=== PATIENT | female | born 1985 | race Caucasian/White ===

== ENCOUNTER 2016-12-02 20:23 | Outpatient (CLI) | payer MEDICAID ==
[~2016-12-02] VITALS: Ht 152.4 cm; Wt 72.9 kg
[2016-12-02 20:35] VITALS: Ht 152.4 cm; Wt 72.9 kg
[2016-12-02 20:36] VITALS: BP 119/75; PULSE 69; RESP 18
[2016-12-02] MEDS ORDERED: PRENAT PO (20:39)
[2016-12-02] MEDS ORDERED: FERR325C PO (20:39)
--- NOTE | 2016-12-02 21:52 | RADRPT ---
PROCEDURE: US OB biophysical profile. CLINICAL INDICATION: decreased movements TECHNIQUE: Multiple sonographic images of the pelvis were obtained. The images were reviewed on a PACS workstation. COMPARISON: No prior studies are available for comparison. FINDINGS: There is a single viable intrauterine gestation. Cardiac activity is present with 130 beats per min loyda. There is a vertex presentation. The placenta is anterior. There is no evidence of placental abruption. There is a normal amount of amniotic fluid with an VIVIANA = 16.5 cm. Biophysical profile: movement 2/2 tone 2/2. breathing 2/2 VIVIANA 2/2 Total 11/18 RPTAT: AA . IMPRESSION: Normal biophysical profile. . .Marcus Vallejo MD, MD Date Time Electronically viewed and signed by .Marcus Vallejo MD, MD on 12/02/2016 21:52 .S/
[2016-12-02 23:38] LABS: BASOPHILS % 0.3 % (0.0-2.0); EOSINOPHILS % 0.5 % (0.0-7.0); HEMATOCRIT 34.2 % (37.0-47.0); HEMOGLOBIN 11.8 g/dl (12.0-16.0); LYMPHOCYTES # 2.3 10^3/ul (0.8-2.9); LYMPHOCYTES % 36.1 % (15.0-51.0); MEAN CORPUSCULAR HEMOGLOBIN 31.9 pg (29.0-33.0); MEAN CORPUSCULAR HGB CONC 34.5 g/dl (32.0-37.0); MEAN CORPUSCULAR VOLUME 92.4 fl (82.0-101.0); MEAN PLATELET VOLUME 11.9 fl (7.4-10.4); MONOCYTE # 0.4 10^3/ul (0.3-0.9); MONOCYTES % 5.9 % (0.0-11.0); PLATELET COUNT 200 10^3/UL (140-415); RED CELL DISTRIBUTION WIDTH 13.2 % (11.5-14.5); WHITE BLOOD COUNT 6.5 10^3/ul (4.8-10.8)
[2016-12-02 23:48] LABS: UR BILIRUBIN (Dip) NEGATIVE (NEGATIVE); UR BLOOD (Dip) NEGATIVE (NEGATIVE); UR CLARITY CLEAR (CLEAR); UR COLOR YELLOW (YELLOW); UR GLUCOSE (Dip) NEGATIVE (NEGATIVE); UR KETONES (Dip) NEGATIVE (NEGATIVE); UR LEUKOCYTE ESTERASE (Dip) NEGATIVE Leu/ul (NEGATIVE); UR NITRITE (Dip) NEGATIVE (NEGATIVE); UR SPECIFIC GRAVITY (Dip) 1.014 (1.003-1.030); UR TOTAL PROTEIN (Dip) NEGATIVE (NEGATIVE); UR UROBILINOGEN (Dip) NEGATIVE (NEGATIVE)
[2016-12-02 23:49] LABS: ADD UMIC NO; UR ASCORBIC ACID NEGATIVE (NEGATIVE)
[2016-12-02 23:56] LABS: ALBUMIN 3.2 g/dl (3.3-4.9); ALBUMIN/GLOBULIN RATIO 0.91; BILIRUBIN,INDIRECT 0.3 mg/dl (0-1.1); BILIRUBIN,TOTAL 0.3 mg/dl (0.2-1.3); CALCIUM 8.7 mg/dl (8.4-10.2); CREATININE 0.76 mg/dl (0.44-1.00); TOTAL PROTEIN 6.7 g/dl (6.1-8.1)
--- NOTE | 2016-12-03 02:54 | TRIAGE ---
OB Triage Datetime Report Generated by CPN: 12/03/2016 02:54 Datetime: 12/03/2016 01:30 Stage of : OB Triage Labor Evaluation Frequency: occasional Monitor Mode: External Duration (sec)2399: 60-80 Quality: Mild Resting Tone [place]: Relaxed Heart Rate FHR Baseline Rate: 130 Monitor Mode: External US Variability: Moderate 6-25 bpm Accelerations: 15X15 Decelerations: None Category: Category I Datetime: 12/03/2016 00:30 Stage of : OB Triage Labor Evaluation Frequency: occasional Monitor Mode: External Duration (sec)2399: 40-60 Quality: Mild Resting Tone [place]: Relaxed Heart Rate FHR Baseline Rate: 125 Monitor Mode: External US Variability: Moderate 6-25 bpm Accelerations: 15X15 Decelerations: None Category: Category I Datetime: 12/02/2016 23:30 Labor Evaluation Frequency: irregular Monitor Mode: External Duration (sec)2399: 40-80 Quality: Mild Resting Tone [place]: Relaxed Heart Rate FHR Baseline Rate: 120 Monitor Mode: External US FHR Baseline Changes: No Baseline Change Variability: Moderate 6-25 bpm Accelerations: 15X15 Decelerations: None Category: Category I Pain Assessment Pain Scale: 1 Pain Presence: Intermittent Pain Type: Contraction Pain Location: Abdomen Datetime: 12/02/2016 23:21 Stage of : OB Triage Datetime: 12/02/2016 23:18 Monitor Mode: External US Datetime: 12/02/2016 22:40 Stage of : OB Triage Datetime: 12/02/2016 22:30 Stage of : OB Triage Monitor Mode: External Quality: Mild Resting Tone [place]: Relaxed Heart Rate FHR Baseline Rate: 110 Monitor Mode: External US FHR Baseline Changes: No Baseline Change Variability: Moderate 6-25 bpm Accelerations: 15X15 Decelerations: None Category: Category I Datetime: 12/02/2016 22:13 Stage of : OB Triage Datetime: 12/02/2016 21:50 Stage of : OB Triage Datetime: 12/02/2016 21:37 Vaginal Exam Dilatation (cms): 0.5 Effacement (%): 50 Station: -3 Exam By: M GRIFFITH Vaginal Bleeding: None Cervix, Consistency: Firm Cervix, Position: Posterior Presentation 'A': Cephalic Datetime: 12/02/2016 21:32 Stage of : OB Triage Datetime: 12/02/2016 21:25 Stage of : OB Triage Labor Evaluation Frequency: 3-11 Monitor Mode: External Duration (sec)2399: 50-80 Quality: Mild Resting Tone [place]: Relaxed Heart Rate FHR Baseline Rate: 120 Monitor Mode: External US Variability: Moderate 6-25 bpm Accelerations: 15X15 Decelerations: None Category: Category I Datetime: 12/02/2016 20:40 Assessment Type: Triage Maternal Assessment Level of Consciousness: Fully Conscious DTR's/Clonus: DTRs 2+; No Clonus Headache: Denies Blurred Vision: No Respiratory Effort: Unlabored Breath Sounds, Left: Clear and Equal Breath Sounds, Right: Clear and Equal Nausea/Vomiting: Denies RUQ Epigastric Pain: Denies Lower Extremities Edema: None Degree: None Upper Extremities Edema: None Degree: None Facial Edema: None Fall Risk Assessment History of Falling: (0) No Secondary Diagnosis: (15) Yes (Annotations: gdm diet controlled) Ambulatory Aid: (0) Bedrest/Nurse Assist IV Therapy: (0) No Gait: (0) Normal/Bedrest/Immobile Mental Status: (0) Oriented to Own Ability Fall Score: 15 Fall Risk Score Definition: No Risk: No action required Datetime: 12/02/2016 20:31 Stage of : OB Triage Monitor Mode: External Contraction Comments: placed Monitor Mode: External US Comments: placed Datetime: 12/02/2016 20:26 Time of Arrival: 12/02/2016 20:15 EGA: 39.1 Arrived By: Ambulatory Arrived From: Home Chief Complaint: DFM, occ ucs since Sat Movement: Decreased Contractions: Occasional Rupture of Membranes: Denies Vaginal Bleeding: None Vaginal Discharge: Denies Recent Sexual Intercouse: Denies Abdominal Trauma: Not Applicable Patient Complaints: Contractions; Other Time Provider Notified: 12/02/2016 21:09 Provider Notified: TOM Initial Plan: OLU, kelvin, ALEXANDER
--- NOTE | 2016-12-03 04:15 | PN ---
Triage Information Date/Time 12/03/16 0410 Reason for visit: DFM Weeks of Gestation 39w1d /Para Diabetes: none, gestational Diabetes management: diet controlled Hypertention: none Objective Vital Signs Date Time Temp Pulse Resp B/P Pulse Ox O2 Delivery O2 Flow Rate FiO2 12/02/16 20:36 98.3 69 18 119/75 97 Room Air Heart Rate: 120's Contractions: 6-10 Minutes Apart Exam VE ftp/50 /-4 Results/Medications Result Diagram: 12/02/164 12/02/16 2324 Results 24 hrs Laboratory Tests Test 12/02/16 21:03 12/02/16 23:24 Urine Color YELLOW Urine Clarity CLEAR Urine pH 7.0 Urine Specific [place] 1.014 Urine Ketones NEGATIVE Urine Nitrite NEGATIVE Urine Bilirubin NEGATIVE Urine Urobilinogen NEGATIVE Urine Leukocyte Esterase NEGATIVE Urine Hemoglobin NEGATIVE Urine Glucose NEGATIVE Urine Total Protein NEGATIVE White Blood Count 6.5 Red Blood Count 3.70 L Hemoglobin 11.8 L Hematocrit 34.2 L Mean Corpuscular Volume 92.4 Mean Corpuscular Hemoglobin 31.9 Mean Corpuscular Hemoglobin Concent 34.5 Red Cell Distribution Width 13.2 Platelet Count 200 Mean Platelet Volume 11.9 H Neutrophils % 57.0 Lymphocytes % 36.1 Monocytes % 5.9 Eosinophils % 0.5 Basophils % 0.3 Nucleated Red Blood Cells % 0.0 Neutrophils # (Manual) 4 Lymphocytes # 2.3 Monocytes # 0.4 Eosinophils # 0.0 Basophils # 0.0 Nucleated Red Blood Cells # 0.0 Sodium Level 137 Potassium Level 4.0 Chloride Level 103 Carbon Dioxide Level 21 Anion Gap 17 H Blood Urea Nitrogen 15 Creatinine 0.76 Glucose Level 91 Uric Acid 5.4 Calcium Level 8.7 Total Bilirubin 0.3 Direct Bilirubin 0.00 Indirect Bilirubin 0.3 Aspartate Amino Transf (AST/SGOT) 20 Alanine Aminotransferase (ALT/SGPT) 40 Alkaline Phosphatase 226 H Total Protein 6.7 Albumin 3.2 L Globulin 3.50 H Albumin/Globulin Ratio 0.91 Imaging Results BPP 11/18 VIVIANA 16.5 Disposition: Discharge Assessment/Plan IUP 39w1d latent phase RTH prn with labor instructions PHILOMENA CHANDRA MD Dec 03, 2016 04:14
== END 2016-12-03 01:40 | disposition home or self-care (01) ==
LOC: L-D 20:23 → OBT 20:23
PROVIDERS: ATTEND Obstetrics & Gynecology
DX: O36.8130 Decreased fetal movements, third trimester, not applicable or unspecified (principal); Z3A.39 39 weeks gestation of pregnancy; O24.410 Gestational diabetes mellitus in pregnancy, diet controlled
CPT/HCPCS: 76818; 80053; 81003; 84560; 85025; Z7500; G0463

== ENCOUNTER 2016-12-08 10:00 | Inpatient (IN) | payer MEDICAID ==
[~2016-12-08] VITALS: Ht 152.4 cm; Wt 71.6 kg
[~2016-12-08 10:00] MED LIST: FERR325C PO; PRENAT PO
[2016-12-08 12:11] VITALS: Ht 152.4 cm; Wt 71.6 kg
[2016-12-08] MEDS: LACTATED RINGER'S 1,000 ML IV SCH ×2 (12:51→21:05)
[2016-12-08] MEDS ORDERED: METHYLERGONOVINE 0.2 MG INJ IM PRN (13:00)
[2016-12-08] MEDS ORDERED: BUTORPHANOL 2 MG INJ IV PRN (13:00)
[2016-12-08] MEDS ORDERED: IBUPROFEN 600 MG TAB PO PRN (13:00)
[2016-12-08] MEDS ORDERED: MISOPROSTOL 200 MCG TAB PR PRN (13:00)
[2016-12-08] MEDS ORDERED: LACTATED RINGER'S 1,000 ML IV PRN (13:00)
[2016-12-08] MEDS ORDERED: DINOPROSTONE 10 MG VAG SUPP VAG ONE (13:00)
[2016-12-08] MEDS ORDERED: LIDOCAINE 1% (MPF) 30 ML INJ INJ PRN (13:00)
[2016-12-08] MEDS ORDERED: OXYTOCIN 30 UNITS/LR 500 ML IV PRN (13:00)
[2016-12-08] MEDS ORDERED: CARBOPROST 250 MCG INJ IM PRN (13:00)
[2016-12-08] MEDS ORDERED: OXYTOCIN 30 UNITS/LR 500 ML IV SCH (13:00)
[2016-12-08] MEDS ORDERED: AMPICILLIN 2 GM/NS (PMX) 100 ML IV ONE (13:00)
[2016-12-08 13:08] LABS: BASOPHILS % 0.4 % (0.0-2.0); EOSINOPHILS % 0.6 % (0.0-7.0); HEMATOCRIT 32.3 % (37.0-47.0); HEMOGLOBIN 11.2 g/dl (12.0-16.0); LYMPHOCYTES # 1.7 10^3/ul (0.8-2.9); MEAN CORPUSCULAR HEMOGLOBIN 31.6 pg (29.0-33.0); MEAN CORPUSCULAR HGB CONC 34.7 g/dl (32.0-37.0); MEAN CORPUSCULAR VOLUME 91.2 fl (82.0-101.0); MEAN PLATELET VOLUME 12.8 fl (7.4-10.4); MONOCYTE # 0.4 10^3/ul (0.3-0.9); NEUTROPHILS % 59.8 % (39.0-77.0); PLATELET COUNT 177 10^3/UL (140-415); RED BLOOD COUNT 3.54 10^6/ul (4.20-5.40); RED CELL DISTRIBUTION WIDTH 13.5 % (11.5-14.5); WHITE BLOOD COUNT 5.4 10^3/ul (4.8-10.8)
[2016-12-08 13:20] LABS: INR 0.82; PROTIME 11.3 Sec (12.2-14.2); PT RATIO 0.9
[2016-12-08 13:21] LABS: PARTIAL THROMBOPLASTIN TIME 25.8 Sec (25.0-35.0)
[2016-12-08 15:13] VITALS: BP 128/86; PULSE 128; RESP 18
[2016-12-08] MEDS: AMPICILLIN 1 GM/NS (PMX) 50 ML IV SCH ×2 (17:02→21:05)
[2016-12-08 17:12] LABS: ALBUMIN 3.3 g/dl (3.3-4.9); ALBUMIN/GLOBULIN RATIO 0.94; BILIRUBIN,INDIRECT 0.2 mg/dl (0-1.1); BILIRUBIN,TOTAL 0.2 mg/dl (0.2-1.3); CALCIUM 8.6 mg/dl (8.4-10.2); CREATININE 0.55 mg/dl (0.44-1.00); POTASSIUM 4.2 mmol/L (3.5-5.1); TOTAL PROTEIN 6.8 g/dl (6.1-8.1); URIC ACID 5.7 mg/dl (3.1-7.9)
[2016-12-08 18:02] LABS: ADD UMIC NO; UR ASCORBIC ACID NEGATIVE (NEGATIVE); UR BILIRUBIN (Dip) NEGATIVE (NEGATIVE); UR BLOOD (Dip) NEGATIVE (NEGATIVE); UR CLARITY CLEAR (CLEAR); UR COLOR STRAW (YELLOW); UR GLUCOSE (Dip) NEGATIVE (NEGATIVE); UR KETONES (Dip) NEGATIVE (NEGATIVE); UR LEUKOCYTE ESTERASE (Dip) NEGATIVE Leu/ul (NEGATIVE); UR NITRITE (Dip) NEGATIVE (NEGATIVE); UR TOTAL PROTEIN (Dip) NEGATIVE (NEGATIVE); UR UROBILINOGEN (Dip) NEGATIVE (NEGATIVE)
--- NOTE | 2016-12-08 20:56 | HP ---
Date/Time of Note Date/Time of Note DATE: 12/08/16 TIME: 20:54 OB - History Hx of Present Free Text/Dictation Admitted for elective induction of labor at term Chief Complaint: None Last Menstrual Period: Mar 03, 2016 Estimated Due Date: Dec 08, 2016 : 3 Para: 1 Spontaneous : 1 Care: Good Care Ultrasounds: Normal mid trimester US Obstetrical Complications: Gestational Diabetes Medical Complications: None Past Family/Social History * Past Medical, Surgical, Family and Obstetric Histories reviewed from chart. Blood Type: O+ Rubella: immune RPR/VDRL: Negative GBS Status: Positive HBsAG: Negative OB Admission Exam Vital Signs Vital Signs Vital Signs Date Time Temp Pulse Resp B/P Pulse Ox O2 Delivery O2 Flow Rate FiO2 12/08/16 15:13 98.1 128 18 128/86 96 Room Air Physical Exam HEENT: WNL Heart: Rhythm Normal Lungs: Clear, Equal Abdomen: WNL Extremities: Normal Reflexes: Normal Cervical Dilatation: 1cm Effacement: 0% Station: -3 Membranes: Intact Heart Rate: 130's Decelerations: No Decelerations Varibility: Marked Contractions on Admission: None Last 72 hourBlood Glucose Bedside Glucose - 72 Hours Test 12/08/16 12:42 12/08/16 20:10 Bedside Glucose 95mg/dL (70-220) 81mg/dL (70-220) Last 72 hours Lab Results CBC & BMP 12/08/16 12:45 12/08/16 14:45 Liver Function Test 12/08/16 14:45 Alanine Aminotransferase (ALT/SGPT) 34 Albumin 3.3 Alkaline Phosphatase 231 H Aspartate Amino Transf (AST/SGOT) 24 Direct Bilirubin 0.00 Total Protein 6.8 OB Assessment/Plan Reason for admission: induction of labor Other Assessment: Term gestation Additional diabetes Induction Method: per Misoprostol Protocol DARREL DOMÍNGUEZ MD Dec 08, 2016 20:56
[2016-12-08] MEDS ORDERED: ACCU-CHEK XX SCH (23:00)
[2016-12-09] MEDS: AMPICILLIN 1 GM/NS (PMX) 50 ML IV SCH ×4 (01:10→13:21)
[2016-12-09] MEDS ORDERED: MAGNESIUM SULFATE 4 GM/100 ML 100 ML IV SCH (05:30)
[2016-12-09] MEDS ORDERED: CA GLUCONATE (GM) 10% 10ML INJ IV PRN (05:30)
[2016-12-09] MEDS ORDERED: FENTAnyl 2MCG/ML-ROPIV 0.2% 100 ML ONE (05:45)
[2016-12-09] MEDS ORDERED: MAGNESIUM SULFATE 20 GM/500 ML 500 ML IV SCH (06:30)
[2016-12-09] MEDS ORDERED: NALOXONE (0.4 MG/ML) INJ IV PRN (06:30)
[2016-12-09] MEDS ORDERED: FENTAnyl 2MCG/ML-ROPIV 0.2% 100 ML BAG EPI SCH (06:30)
[2016-12-09] MEDS: LACTATED RINGER'S 1,000 ML IV SCH ×2 (06:36→14:07)
[2016-12-09] MEDS ORDERED: MINERAL OIL LIGHT 10 ML VIAL TOP ONE (09:30)
[2016-12-09] MEDS: OXYTOCIN 30 UNITS/LR 500 ML IV SCH ×2 (14:42→16:51)
--- NOTE | 2016-12-09 14:47 | LDN ---
Date/Time of Note Date/Time of Note DATE: 12/09/16 TIME: 14:45 Delivery Summary Normal spontaneous vaginal delivery of a viable over intact perineum Weeks of Gestation 40 Assisted Vaginal Delivery: Vacuum Placenta Delivered: Spontaneously, Intact & Complete Meconium: none Episiotomy: No Perineal laceration: 0 Anesthesia type: Epidural Estimated blood loss: 200 Sponge & Needle done & correct: Yes All needle counts correct: Yes Any foreign bodies felt in the: No Problems: Infant Delivery Information Sex Infant Sex: female Apgars 1 Minute: 9 5 Minute: 9 Suctioning Nose & mouth suctioned at divya: Yes Delee suction performed: No Umbilical Cord Umbilical cord with: 3 Vessels Cord presentations: nuchal cord Nuchal cord present X: 2 Cord Blood was obtained: Yes Mother & Baby Disposition Disposition Mom & Baby to Maternity; Good: Yes (Mother and baby were recovered in good condition) Mom transferred to: Other (30 T) Baby to NICU: No DARREL DOMÍNGUEZ MD Dec 09, 2016 14:47
[2016-12-09 16:45] VITALS: BP 150/79; PULSE 62; RESP 18
[2016-12-09] MEDS: LACTATED RINGER'S 1,000 ML IV* SCH (17:29)
[2016-12-09] MEDS ORDERED: BENZOCAINE 20% 56 ML SPRAY TOP PRN (17:30)
[2016-12-09] MEDS ORDERED: LANOLIN 7 GM TUBE TOP PRN (17:30)
[2016-12-09] MEDS ORDERED: METHYLERGONOVINE 0.2 MG INJ IM PRN (17:30)
[2016-12-09] MEDS ORDERED: CARBOPROST 250 MCG INJ IM PRN (17:30)
[2016-12-09] MEDS ORDERED: MISOPROSTOL 200 MCG TAB PR PRN (17:30)
[2016-12-09] MEDS ORDERED: DIBUCAINE 1% 30 GM OINT PR PRN (17:30)
[2016-12-09] MEDS ORDERED: ZOLPIDEM 5 MG TAB PO PRN (17:30)
[2016-12-09] MEDS ORDERED: HYDROCODONE/APAP (5/325) TAB PO PRN ×2 (17:30)
[2016-12-09] MEDS ORDERED: WITCH HAZEL/GLYCERIN PAD PR PRN (17:30)
[2016-12-09] MEDS ORDERED: OXYTOCIN 30 UNITS/LR 500 ML IV PRN (17:30)
[2016-12-09] MEDS: IBUPROFEN 600 MG TAB PO SCH (17:52)
[2016-12-09] MEDS: CEPHALEXIN 500 MG CAP PO SCH (17:52)
[2016-12-09 19:20] VITALS: PULSE 62; RESP 18
[2016-12-09] MEDS: ACCU-CHEK XX SCH ×2 (20:00→20:05)
[2016-12-09] MEDS: SENNA/DOCUSATE NA (8.6MG/50MG) TAB PO SCH (21:04)
[2016-12-09] MEDS: MAGNESIUM HYDROXIDE 30ML CUP PO SCH (21:04)
[2016-12-09] MEDS: metFORMIN (XR) 500 MG TAB PO SCH (21:57)
[2016-12-10] VITALS: BP 115/65; PULSE 69; RESP 18
[2016-12-10] MEDS: CEPHALEXIN 500 MG CAP PO SCH ×5 (00:23→23:50)
[2016-12-10] MEDS: IBUPROFEN 600 MG TAB PO SCH ×5 (00:23→23:50)
[2016-12-10] MEDS: LACTATED RINGER'S 1,000 ML IV* SCH ×2 (01:29→09:29)
[2016-12-10 03:55] VITALS: BP 130/80; PULSE 58; RESP 18
[2016-12-10] MEDS: ACCU-CHEK XX SCH ×4 (07:30→20:05)
[2016-12-10 08:00] VITALS: BP 111/76; PULSE 62; RESP 18
[2016-12-10] MEDS: metFORMIN (XR) 500 MG TAB PO SCH ×2 (08:40→21:00)
[2016-12-10] MEDS: SENNA/DOCUSATE NA (8.6MG/50MG) TAB PO SCH ×2 (09:19→21:17)
[2016-12-10] MEDS: MAGNESIUM HYDROXIDE 30ML CUP PO SCH ×2 (09:19→21:17)
[2016-12-10 12:14] LABS: BASOPHILS % 0.2 % (0.0-2.0); EOSINOPHILS # 0.1 10^3/ul (0.0-0.5); EOSINOPHILS % 0.5 % (0.0-7.0); HEMATOCRIT 30.9 % (37.0-47.0); HEMOGLOBIN 10.5 g/dl (12.0-16.0); LYMPHOCYTES # 2.1 10^3/ul (0.8-2.9); MEAN CORPUSCULAR HEMOGLOBIN 31.6 pg (29.0-33.0); MEAN CORPUSCULAR VOLUME 93.1 fl (82.0-101.0); MEAN PLATELET VOLUME 12.7 fl (7.4-10.4); MONOCYTE # 0.4 10^3/ul (0.3-0.9); MONOCYTES % 3.8 % (0.0-11.0); NEUTROPHILS % 74.1 % (39.0-77.0); PLATELET COUNT 159 10^3/UL (140-415); RED BLOOD COUNT 3.32 10^6/ul (4.20-5.40); RED CELL DISTRIBUTION WIDTH 13.9 % (11.5-14.5)
--- NOTE | 2016-12-10 14:19 | DS ---
Date/Time of Note Date/Time of Note Home today or next day DATE: 12/10/16 TIME: 14:18 Obstetrical Discharge Record Final Diagnosis Final Diagnosis: Term delivered Other Final Diagnosis Status post vaginal delivery Vaginal Delivery Obstetrical Delivery: Spontaneous Complications Gestational Diabetes Augmentation: Yes Induction: Yes Condition on Discharge Physical Assessment Last Vitals: See nurse's note Voiding: Yes Bowel Movement: Yes Breast: Soft, non-tender, Filling Fundus: Firm Abdomen and Incision: Soft bowel sounds present Episiotomy: Not applicable Calf Tenderness: No Patient Condition: Good DARREL DOMÍNGUEZ MD Dec 10, 2016 14:19
--- NOTE | 2016-12-10 14:20 | PD.PPDC ---
[employer]ION[employer]OD[employer] ADVISOR Discharge Instruction Provider Information Physician Information 31-year-old female had vaginal delivery Diagnosis Final Diagnosis: Status post vaginal delivery Condition Patient Condition: Good Diet Diet: Special Diet Special Diet: 1800-calorie ADA Activity/Restrictions Activity: Normal Activity May Shower Restrictions: Nothing in the Vagina Return to Work or School: Jan 26, 2017 Follow-up Follow-up with Physician: 4, Week/Weeks (Clinic) Return to clinic for OB Instructions: Breast Tenderness Depression Comment: Pelvic rest 6 weeks DARREL DOMÍNGUEZ MD Dec 10, 2016 14:20
[2016-12-10] MEDS ORDERED: IBUP-1542 PO (14:21)
[2016-12-10] MEDS ORDERED: METF500T3 PO (14:21)
[2016-12-10 16:00] VITALS: BP 110/76; PULSE 70; RESP 18
[2016-12-10 19:45] VITALS: BP 116/74; PULSE 64; RESP 18
[2016-12-11 04:20] VITALS: BP 122/78; PULSE 62; RESP 18
[2016-12-11] MEDS: CEPHALEXIN 500 MG CAP PO SCH ×2 (06:05→13:04)
[2016-12-11] MEDS: IBUPROFEN 600 MG TAB PO SCH ×2 (06:05→12:00)
[2016-12-11 08:45] VITALS: BP 134/84; PULSE 56; RESP 20
[2016-12-11] MEDS ORDERED: DIPHTH/TET/ACEL PERTUSS (ADULT) 0.5 ML VIAL IM* ONE (09:00)
[2016-12-11] MEDS ORDERED: VARICELLA VACCINE LIVE/PF 1,350 UNIT/0.5 ML ML SC* ONE (09:00)
[2016-12-11] MEDS: MAGNESIUM HYDROXIDE 30ML CUP PO SCH (09:00)
[2016-12-11] MEDS ORDERED: MEASLES,MUMPS,RUBELLA VACCINE INJ SC* ONE (09:00)
[2016-12-11] MEDS: SENNA/DOCUSATE NA (8.6MG/50MG) TAB PO SCH (09:00)
[2016-12-11] MEDS: metFORMIN (XR) 500 MG TAB PO SCH (09:08)
== END 2016-12-11 17:05 | disposition home or self-care (01) | DRG 775 ==
LOC: L-D 11:08 → PP1 12-09 16:42
PROVIDERS: ADMIT Obstetrics & Gynecology; ATTEND Obstetrics & Gynecology
PROC: 10D07Z6 Extraction of Products of Conception, Vacuum, Via Natural or Artificial Opening (ICD-10-PCS; principal; 2016-12-09)
PROC: 3E033VJ Introduction of Other Hormone into Peripheral Vein, Percutaneous Approach (ICD-10-PCS; 2016-12-09)
DX: O69.81X0 Labor and delivery complicated by cord around neck, without compression, not applicable or unspecified (principal); O24.429 Gestational diabetes mellitus in childbirth, unspecified control; O48.0 Post-term pregnancy; Z3A.40 40 weeks gestation of pregnancy; Z37.0 Single live birth
CPT/HCPCS: 62319; 80053; 81003; 82962; 84560; 85025; 85610; 85730; 86592; 86900; 86901; 87340; 90715; 90716; 99464; J0290; J2590; J3010; J7120

== ENCOUNTER 2018-07-02 14:08 | Outpatient (CLI) | payer MEDICAID ==
[~2018-07-02] VITALS: Ht 152.4 cm; Wt 46.8 kg
[~2018-07-02 14:08] MED LIST changes: +IBUP-1542 PO; +METF500T3 PO
[2018-07-02 14:38] VITALS: BP 101/64; Ht 152.4 cm; Wt 46.8 kg
--- NOTE | 2018-07-02 17:07 | PN ---
Triage Information Date/Time 07/02/2018 Reason for visit: Patient was sent in from clinic for generalized body itching in antepartum testing Weeks of Gestation 33 weeks /Para 4 para 3 Diabetes: none Hypertention: none Objective Vital Signs Date Temp Pulse Resp B/P (MAP) Pulse Ox O2 O2 Flow FiO2 Time Delivery Rate 07/02/18 98.6 101/64 Room Air 14:38 (76) Heart Rate: 140's Heart Rate Comments Reactive Contractions: None Results/Medications Result Diagram: 07/02/18 1458 07/02/18 1458 Results 24 hrs Laboratory Tests Test 07/02/18 14:58 White Blood Count 5.5 # Red Blood Count 3.52 L Hemoglobin 11.2 L Hematocrit 32.6 L Mean Corpuscular Volume 92.6 Mean Corpuscular Hemoglobin 31.8 Mean Corpuscular Hemoglobin Concent 34.4 Red Cell Distribution Width 12.3 Platelet Count 238 # Mean Platelet Volume 11.1 H Immature Granulocytes % 0.400 Neutrophils % 67.9 Lymphocytes % 26.0 Monocytes % 4.6 Eosinophils % 0.9 Basophils % 0.2 Nucleated Red Blood Cells % 0.0 Immature Granulocytes # 0.020 Neutrophils # 3.7 Lymphocytes # 1.4 Monocytes # 0.3 Eosinophils # 0.1 Basophils # 0.0 Nucleated Red Blood Cells # 0.0 Sodium Level 140 Potassium Level 3.9 Chloride Level 108 Carbon Dioxide Level 21 Anion Gap 11 Blood Urea Nitrogen 8 Creatinine 0.42 L Est Glomerular Filtrat Rate mL/min > 60 Glucose Level 151 Calcium Level 8.9 Total Bilirubin 0.4 Direct Bilirubin 0.00 Indirect Bilirubin 0.4 Aspartate Amino Transf (AST/SGOT) 29 Alanine Aminotransferase (ALT/SGPT) 28 Alkaline Phosphatase 180 H Total Protein 6.9 Albumin 3.4 Globulin 3.50 H Albumin/Globulin Ratio 0.97 Imaging Results Normal biophysical profile. Borderline polyhydramnios. Disposition: Discharge Assessment/Plan Possible cholestasis of Bile acids are pending Liver enzymes are normal We will start patient on your ursodiol 300 p.o. 3 times a day Continue antepartum testing in 3 days DARREL DOMÍNGUEZ MD Jul 02, 2018 17:06
--- NOTE | 2018-07-02 18:44 | TRIAGE ---
OB Triage Datetime Report Generated by CPN: 07/02/2018 18:43 Datetime: 07/02/2018 17:02 Stage of : OB Triage Datetime: 07/02/2018 16:36 Labor Evaluation Frequency: 0 Monitor Mode: External Pattern: Normal: <= 5 Contractions in 10 Minutes Resting Tone [place]: Relaxed Heart Rate FHR Baseline Rate: 145 Monitor Mode: External US Variability: Moderate 6-25 bpm Accelerations: 10X10 Decelerations: None Category: Category I Pain Assessment Pain Scale: 0 Pain Presence: None/Denies Pain Type: N/A Pain Goal: 3 Pain Relief Measures: Comfort Measures Datetime: 07/02/2018 15:19 Labor Evaluation Frequency: 0 Monitor Mode: External Pattern: Normal: <= 5 Contractions in 10 Minutes Resting Tone [place]: Relaxed Heart Rate FHR Baseline Rate: 145 Monitor Mode: External US Variability: Moderate 6-25 bpm Accelerations: 10X10 Decelerations: None Category: Category I Pain Assessment Pain Scale: 0 Pain Presence: None/Denies Pain Type: N/A Pain Goal: 3 Pain Relief Measures: Comfort Measures Datetime: 07/02/2018 14:35 Stage of : OB Triage Assessment Type: Triage Maternal Assessment Level of Consciousness: Fully Conscious DTR's/Clonus: DTRs 2+; No Clonus Headache: Denies Blurred Vision: No Respiratory Effort: Unlabored; Regular Rhythm; Equal Expansion Breath Sounds, Left: Clear and Equal Breath Sounds, Right: Clear and Equal Nausea/Vomiting: Denies RUQ Epigastric Pain: Denies Lower Extremities Edema: None Degree: None Upper Extremities Edema: None Facial Edema: None Temperature Route: Oral Fall Risk Assessment History of Falling: (0) No Secondary Diagnosis: (0) No Ambulatory Aid: (0) Bedrest/Nurse Assist IV Therapy: (0) No Gait: (0) Normal/Bedrest/Immobile Mental Status: (0) Oriented to Own Ability Fall Score: 0 Fall Risk Score Definition: No Risk: No action required Monitor Mode: External (Annotations: INITIAL PLACEMENT ) Monitor Mode: External US (Annotations: INITIAL PLACEMENT ) Pain Assessment Pain Scale: 0 Pain Presence: None/Denies Pain Type: N/A Datetime: 07/02/2018 14:34 Time of Arrival: 07/02/2018 14:00 EGA: 33.0 Arrived By: Ambulatory Arrived From: Dr. Monahan Chief Complaint: SENT FROM CLINIC FOR ITCHING ALL OVER BODY Movement: Present Contractions: Denies/Absent Rupture of Membranes: Denies Vaginal Bleeding: None Vaginal Discharge: Denies Recent Sexual Intercouse: Denies Abdominal Trauma: Not Applicable Patient Complaints: Other Time Provider Notified: 07/02/2018 14:48 Provider Notified: DR. SANTOS Initial Plan: JOSE F GIPSON MD
== END 2018-07-02 17:10 | disposition home or self-care (01) ==
LOC: OBT 14:08 → L-D 14:09 → OBT 17:10
PROVIDERS: ATTEND Obstetrics & Gynecology
DX: O26.893 Other specified pregnancy related conditions, third trimester (principal); Z3A.33 33 weeks gestation of pregnancy; L29.9 Pruritus, unspecified
CPT/HCPCS: 76818; 80053; 83789; 85025; Z7500; G0463

== ENCOUNTER 2018-07-08 16:50 | Emergency (ER) | payer MEDICAID ==
[~2018-07-08] VITALS: Ht 167.6 cm; Wt 68.7 kg
[~2018-07-08 16:50] MED LIST changes: -IBUP-1542 PO; -METF500T3 PO
[2018-07-08 17:08] VITALS: BP 118/67; PULSE 81; RESP 20; Ht 167.6 cm; Wt 68.7 kg
[2018-07-08] MEDS ORDERED: FLUT16SP17 NASAL (20:22)
[2018-07-08] MEDS ORDERED: CETI5TAB20 PO (20:22)
--- NOTE | 2018-07-08 23:01 | ERD ---
ER Documentation Chief Complaint Chief Complaint Complains of a cough clods and flu symptoms x 3 days HPI History of Present Illness: Patient coming in today with complaint of cold symptoms. Patient reports having a cold for approximately 2 weeks. In the past 3 days, patient reports increased nasal congestion and cough. She is approximately 34 weeks ; no abdominal pain, no vaginal bleeding, patient reports feeling kicks. At home pharmacological/nonpharmacological treatment for symptoms: None Denies social concerns; Denies recent foreign travel ROS All systems reviewed and are negative except as per history of present illness. Medications Home Meds Active Scripts Cetirizine Hcl* (Cetirizine Hcl*) 5 Mg Tablet, 5 MG PO DAILY for allergies/cough, #30 TAB Prov:RONALDO OAKES NP 07/08/18 Fluticasone Propionate* (Fluticasone Propionate* Nasal) 50 Mcg/[place] - 16 Gm [place].susp, 1 SPRAY NASAL BID for nasal congestion, #1 BOTTLE TO EACH NOSTRIL Prov:RONALDO OAKES NP 07/08/18 Reported Medications Ferrous Sulfate (Iron) 325 Mg Capsule.er, 325 MG PO DAILY, CAP 12/02/16 Multivit/Min/Fol Ac/Iron/Pren* ( S*) 1 Tab Tab, 1 TAB PO DAILY, TAB 12/02/16 Discontinued Scripts Metformin* (Glucophage* XR) 500 Mg Tab.sr.24h, 500 MG PO BID, #120 6 Refills Prov:DARREL DOMÍNGUEZ MD 12/10/16 Ibuprofen* (Ibuprofen*) 600 Mg Tablet, 600 MG PO Q6, #30 TAB 0 Refills Prov:DARREL DOMÍNGUEZ MD 12/10/16 Allergies Allergies: Coded Allergies: No Known Allergies (Verified Allergy, Unknown, 07/02/18) PMhx/Soc Medical and Surgical Hx: pt denies Medical Hx, pt denies Surgical Hx Hx Psychiatric Problems: Yes (ANXIETY) Hx Alcohol Use: No Hx Substance Use: No Hx Tobacco Use: No Smoking Status: Never smoker FmHx Family History: No diabetes Physical Exam Vitals Vital Signs Date Temp Pulse Resp B/P (MAP) Pulse Ox O2 O2 Flow FiO2 Time Delivery Rate 07/08/18 97.9 81 20 118/67 98 17:08 (84) Physical Exam Const: No acute distress, afebrile Head: Atraumatic Eyes: Normal Conjunctiva ENT: Normal External Ears, Mouth; nasal turbinates swollen, nasal mucosa erythematous. Neck: Full range of motion. No meningismus. Resp: Clear to auscultation bilaterally Cardio: Regular rate and rhythm, no murmurs Abd: Soft, non tender, non distended. No guarding, no masses, no rigidity. Skin: No petechiae or rashes Back: No midline or flank tenderness Ext: No cyanosis, or edema Neur: Awake and alert x3, speaking in clear sentences, no focal deficits or facial asymmetry Psych: Normal Mood and Affect Procedures/MDM ED course includes a thorough examination and history. Low suspicion for life-threatening medical emergency or gynecological emergency requires immediate hospitalization/intervention. Patient afebrile and hemodynamically stable. Otherwise healthy patient presenting with constellation of symptoms likely representing uncomplicated viral syndrome, allergic rhinitis as characterized by history, physical exam findings. No respiratory distress, otherwise relatively well appearing and nontoxic. Patient educated on diagnoses, prescriptions, follow-up care, return precautions. Strict return precautions given for worsening condition; questions answered discharge. Disposition for discharge with followup in 2-3 days with PCP/clinic. Departure Diagnosis: Primary Impression: Viral syndrome Additional Impression: Allergic rhinitis Allergic rhinitis trigger: unspecified Allergic rhinitis seasonality: unspecified Qualified Codes: J30.9 - Allergic rhinitis, unspecified Condition: Stable Patient Instructions: Allergic Rhinitis, Viral Syndrome (Adult) Referrals: COMMUNITY CLINICS YOU HAVE RECEIVED A MEDICAL SCREENING EXAM AND THE RESULTS INDICATE THAT YOU DO NOT HAVE A CONDITION THAT REQUIRES URGENT TREATMENT IN THE EMERGENCY DEPARTMENT. FURTHER EVALUATION AND TREATMENT OF YOUR CONDITION CAN WAIT UNTIL YOU ARE SEEN IN YOUR DOCTORS OFFICE WITHIN THE NEXT 1-2 DAYS. IT IS YOUR RESPONSIBILITY TO MAKE AN APPOINTMENT FOR FOLOW-UP CARE. IF YOU HAVE A PRIMARY DOCTOR --you should call your primary doctor and schedule an appointment IF YOU DO NOT HAVE A PRIMARY DOCTOR YOU CAN CALL OUR PHYSICIAN REFERRAL HOTLINE AT IF YOU CAN NOT AFFORD TO SEE A PHYSICIAN YOU CAN CHOSE FROM THE FOLLOWING [facility]LY [facility] [address] [facility] [address] [facility] [address] [facility] [address] [facility] [facility] [address] [facility]. [facility]. [address] [facility]. [facility] YOU HAVE RECEIVED A MEDICAL SCREENING EXAM AND THE RESULTS INDICATE THAT YOU DO NOT HAVE A CONDITION THAT REQUIRES URGENT TREATMENT IN THE EMERGENCY DEPARTMENT. FURTHER EVALUATION AND TREATMENT OF YOUR CONDITION CAN WAIT UNTIL YOU ARE SEEN IN YOUR DOCTORS OFFICE WITHIN THE NEXT 1-2 DAYS. IT IS YOUR RESPONSIBILITY TO MAKE AN APPOINTMENT FOR FOLOW-UP CARE. IF YOU HAVE A PRIMARY DOCTOR --you should call your primary doctor and schedule and appointment IF YOU DO NOT HAVE A PRIMARY DOCTOR YOU CAN CALL OUR PHYSICIAN REFERRAL HOTLINE AT . IF YOU CAN NOT AFFORD TO SEE A PHYSICIAN YOU CAN CHOSE FROM THE FOLLOWING [facility] INSTITUTIONS: [facility] [address] [place] [address] [facility] [address] [place] [address] [facility] [address] [place] [address] Additional Instructions: Call your primary care doctor TOMORROW for an appointment during the next 2-3 days.See the doctor sooner or return here if your condition worsens before your appointment time. RONALDO OAKES NP Jul 08, 2018 23:01
== END 2018-07-08 20:33 | disposition home or self-care (01) ==
LOC: FTE 16:50
DX: B34.9 Viral infection, unspecified (principal); J30.9 Allergic rhinitis, unspecified
CPT/HCPCS: 99283

== ENCOUNTER 2018-07-15 12:20 | Outpatient (CLI) | payer MEDICAID ==
[~2018-07-15] VITALS: Ht 152.4 cm; Wt 68.8 kg
[~2018-07-15 12:20] MED LIST changes: +CETI5TAB20 PO; +FLUT16SP17 NASAL
[2018-07-15 12:32] VITALS: BP 110/68; PULSE 70; Ht 152.4 cm; Wt 68.8 kg
[2018-07-15] MEDS ORDERED: URSO300C21 PO (12:35)
--- NOTE | 2018-07-15 14:17 | PN ---
Triage Information Date/Time 07/15/2018 Reason for visit: Sent in for antepartum texting because of cholestasis Weeks of Gestation 34 weeks /Para 4 para 3 Diabetes: none Hypertention: none Objective Vital Signs Date Temp Pulse Resp B/P (MAP) Pulse Ox O2 O2 Flow FiO2 Time Delivery Rate 07/15/18 97.6 70 110/68 12:32 (82) Heart Rate: 140's Heart Rate Comments Reactive Contractions: None Results/Medications Imaging Results Biophysical profile score = 8/8 Disposition: Discharge Assessment/Plan Follow-up within 3 days for antepartum test DARREL DOMÍNGUEZ MD Jul 15, 2018 14:17
== END 2018-07-15 14:30 | disposition home or self-care (01) ==
LOC: L-D 12:20 → OBT 12:20
PROVIDERS: ATTEND Obstetrics & Gynecology
DX: O26.613 Liver and biliary tract disorders in pregnancy, third trimester (principal); K83.1 Obstruction of bile duct; Z3A.34 34 weeks gestation of pregnancy
CPT/HCPCS: 76818; Z7500; G0463

== ENCOUNTER 2018-07-21 19:31 | Inpatient (IN) | payer MEDICAID ==
[~2018-07-21] VITALS: Ht 152.4 cm; Wt 70.0 kg
[~2018-07-21 19:31] MED LIST changes: +URSO300C21 PO
[2018-07-21] MEDS: URSODIOL 300 MG CAP PO SCH (21:00)
[2018-07-21] MEDS: BETAMET NA PHOS/AC(6 MG/ML) 2 ML INJ SYG IM SCH (23:25)
[2018-07-21 23:30] VITALS: BP 109/71; PULSE 70; RESP 20
[2018-07-22] MEDS ORDERED: HYDROmorphONE 0.5 MG/0.5 ML SYG IV PRN (00:30)
[2018-07-22] MEDS: COLESEVELAM 625 MG TAB PO SCH ×5 (02:29→23:33)
[2018-07-22] MEDS: URSODIOL 300 MG CAP PO SCH ×3 (09:03→20:52)
[2018-07-22] MEDS: PRENATAL VITAMIN PO SCH (09:03)
--- NOTE | 2018-07-22 14:20 | HP ---
Date/Time of Note Date/Time of Note Late entry DATE: 07/21/18 OB - History Hx of Present Free Text/Dictation 33-year-old female 4 para 3 at 35 weeks and 5 days gestation admitted because of bile acids of 58 and elevated liver enzymes Consultation was made with Dr. Hellen carlson perinatologist who recommended delivery at 36 weeks Patient was admitted for continuous observation and steroid injection Last Menstrual Period: Nov 06, 2017 Estimated Due Date: August 20, 2018 : 4 Para: 3 Care: Limited Care Ultrasounds: Normal mid trimester US Obstetrical Complications: Other (Cholestasis of ) Medical Complications: None Past Family/Social History * Past Medical, Surgical, Family and Obstetric Histories reviewed from chart. Blood Type: O+ Rubella: immune RPR/VDRL: Negative GBS Status: Unknown HBsAG: Negative OB Admission Exam Vital Signs Vital Signs Vital Signs Date Temp Pulse Resp B/P (MAP) Pulse Ox O2 O2 Flow FiO2 Time Delivery Rate 07/21/18 98.7 70 20 109/71 Room Air 23:30 (84) Physical Exam HEENT: WNL Heart: Rhythm Normal Lungs: Clear, Equal Abdomen: WNL Extremities: Normal Reflexes: Normal Cervical Dilatation: None Effacement: 0% Station: -3 Membranes: Intact Heart Rate: 140's Accelerations: Accelerations Present Decelerations: No Decelerations Varibility: Marked Contractions on Admission: None Last 72 hours Lab Results CBC & BMP 07/21/18 20:17 Liver Function Test 07/21/18 20:17 Alanine Aminotransferase (ALT/SGPT) 206 H Albumin 3.5 Alkaline Phosphatase 274 H Aspartate Amino Transf (AST/SGOT) 71 H Direct Bilirubin 0.00 Total Protein 7.4 OB Assessment/Plan Reason for admission: other (Cholestasis of ) Other Assessment: 35 weeks and 5 days gestation Bile acids of 58 Cholestasis of Other plan: Perinatologist recommended delivery at 36 weeks Patient is kept for continuous monitoring on a steroid injection Will probably induce at 36 weeks DARREL DOMÍNGUEZ MD Jul 22, 2018 14:19
--- NOTE | 2018-07-22 14:21 | PN ---
Date/Time of Note Date/Time of Note DATE: 07/22/18 TIME: 14:20 OB Subjective Subjective Subjective Currently complaint of body itching OB Objective Objective Objective Vital signs are stable as well as general physical exam heart tones are reactive Awaiting the second dose of betamethasone OB Assessment/Plan Other Assessment: Cholestasis of at 35 weeks and 6 days Elevated liver enzymes Highly elevated by last Other plan: Induce labor following day DARREL DOMÍNGUEZ MD Jul 22, 2018 14:21
[2018-07-22] MEDS: BETAMET NA PHOS/AC(6 MG/ML) 2 ML INJ SYG IM SCH (22:13)
[2018-07-23] MEDS ORDERED: MINERAL OIL LIGHT 10 ML VIAL TOP PRN (05:00)
[2018-07-23] MEDS ORDERED: CARBOPROST 250 MCG INJ IM PRN ×2 (05:00→22:30)
[2018-07-23] MEDS ORDERED: OXYTOCIN 30 UNITS/LR 500 ML IV PRN ×2 (05:00→22:30)
[2018-07-23] MEDS ORDERED: LIDOCAINE 1% (MPF) 30 ML INJ INJ PRN (05:00)
[2018-07-23] MEDS ORDERED: MISOPROSTOL 200 MCG TAB PR PRN ×2 (05:00→22:30)
[2018-07-23] MEDS ORDERED: METHYLERGONOVINE 0.2 MG INJ IM PRN ×2 (05:00→22:30)
[2018-07-23] MEDS ORDERED: OXYTOCIN 30 UNITS/LR 500 ML IV SCH ×2 (05:00)
[2018-07-23] MEDS ORDERED: BUTORPHANOL 2 MG INJ IV PRN (05:00)
[2018-07-23] MEDS: LACTATED RINGER'S 1,000 ML IV SCH ×3 (05:26→17:46)
[2018-07-23] MEDS ORDERED: MISOPROSTOL 50 MCG CAPSULE VAG PRN (06:00)
[2018-07-23] MEDS ORDERED: AMPICILLIN 2 GM/NS (PMX) 100 ML IV ONE (06:00)
[2018-07-23] MEDS: COLESEVELAM 625 MG TAB PO SCH ×3 (06:19→19:33)
[2018-07-23] MEDS: URSODIOL 300 MG CAP PO SCH ×2 (09:11→19:32)
[2018-07-23] MEDS: AMPICILLIN 1 GM/NS (PMX) 50 ML IV SCH ×3 (09:52→19:32)
[2018-07-23] MEDS: PRENATAL VITAMIN PO SCH (09:57)
[2018-07-23] MEDS ORDERED: CEFAZOLIN 2 GM/50 ML (PMX) 50 ML IVPB ONE (12:00)
--- NOTE | 2018-07-23 14:37 | PN ---
DATE: 07/23/2018 The patient is a 36 weeks and 1 day with cholestasis severe with the bile acid of 58 and very elevate d liver enzymes. Her first ultrasound was at 20 weeks and 5 days and ultrasound currently is consist ent with that per report. My recommendation is delivery as the risk of stillbirth is high in these c ases and delivery should be considered. In addition, betamethasone should be given and has been give n. Dictated By: ALEXANDRA SHEPHERD MD ST/NTS Conf#: [id number] DID#: [id number] CC: DARREL DOMÍNGUEZ MD;*EndCC*
[2018-07-23] MEDS ORDERED: AZITHROMYCIN 500MG/NS (PMX) 250 ML IVPB ONE (16:00)
--- NOTE | 2018-07-23 16:25 | PREAC ---
Date/Time of Note Date/Time of Note DATE: 07/23/18 TIME: 16:23 Anesthesia Eval and Record Evaluation Time Pre-Procedure Interview DATE: 07/23/18 TIME: 16:23 Age 33 Sex female NPO: Other (10:30) Preoperative diagnosis breech cholesthasis Planned procedure c section Past Medical History Past Medical History: Includes : Gestational age: (36) Surgery & Anesthesia Issues No known issue Meds Anticoagulation: No Beta Bebe within 24 hr: No Reason Beta Bebe not given: Pt. not on B-Bebe Active Scripts Cetirizine Hcl* (Cetirizine Hcl*) 5 Mg Tablet, 5 MG PO DAILY for allergies/cough, #30 TAB Prov:RONALDO OAKES V LAST PICKER 07/08/18 Fluticasone Propionate* (Fluticasone Propionate* Nasal) 50 Mcg/[place] - 16 Gm [place].susp, 1 SPRAY NASAL BID for nasal congestion, #1 BOTTLE TO EACH NOSTRIL Prov:RONALDO OAKES V LAST PICKER 07/08/18 Reported Medications Ursodiol* (Actigall*) 300 Mg Cap, 300 MG PO TID, #90 CAP 07/15/18 Ferrous Sulfate (Iron) 325 Mg Capsule.er, 325 MG PO DAILY, CAP 12/02/16 Multivit/Min/Fol Ac/Iron/Pren* ( S*) 1 Tab Tab, 1 TAB PO DAILY, TAB 12/02/16 Current Medications Prenat Multivit/ Food Technician/Iron/Folic Ac () 1 tab DAILY PO Last administered on 07/23/18at 09:57; Admin Dose 1 TAB; Start 07/22/18 at 09:00 Ursodiol (Actigall) 300 mg TID PO Last administered on 07/23/18at 09:11; Admin Dose 300 MG; Start 07/21/18 at 21:00 Colesevelam HCl (Welchol) 625 mg Q6 PO Last administered on 07/23/18at 06:19; Admin Dose 625 MG; Start 07/22/18 at 00:00 Lactated Ringer's 1,000 ml @ 125 mls/hr Q8H IV Last administered on 07/23/18at 15:15; Admin Dose 125 MLS/HR; Start 07/23/18 at 04:47 Butorphanol Tartrate (Stadol) 2 mg Q2H PRN IV .PAIN; Start 07/23/18 at 05:00 Lidocaine (Xylocaine 1% (Mpf)) 30 ml ONCE PRN INJ .EPISIOTOMY; Start 07/23/18 at 05:00 Oxytocin/Lactated Ringer's 500 ml @ 500 mls/hr ONCE POST IV ; Start 07/23/18 at 05:00 Oxytocin/Lactated Ringer's 500 ml @ 125 mls/hr POST IV ; Start 07/23/18 at 05:00 Oxytocin/Lactated Ringer's 500 ml @ 0 mls/hr ONCE PRN IV .VAGINAL BLEEDING; Start 07/23/18 at 05:00 Methylergonovine Maleate (Methergine) 0.2 mg ONCE PRN IM .VAGINAL BLEEDING; Start 07/23/18 at 05:00 Carboprost Tromethamine (Hemabate) 250 mcg ONCE PRN IM .VAGINAL BLEEDING; Start 07/23/18 at 05:00 Misoprostol (Cytotec) 1,000 mcg ONCE PRN GA .VAGINAL BLEEDING; Start 07/23/18 at 05:00 Mineral Oil (Muri-Lube) 20 ml ONCE PRN TOP FOR DELIVERY; Start 07/23/18 at 05:00 Ampicillin 50 ml @ 100 mls/hr Q4H IV Last administered on 07/23/18at 15:16; Admin Dose 100 MLS/HR; Start 07/23/18 at 10:00 Misoprostol (Cytotec 50 Mcg Capsule) 50 mcg Q4 PRN VAG FOR CERVICAL RIPENING; Start 07/23/18 at 06:00 Azithromycin 250 ml @ 250 mls/hr ONCE ONCE IVPB ; Start 07/23/18 at 16:00; Stop 07/23/18 at 16:59 Meds reviewed: Yes Allergies Coded Allergies: No Known Allergies (Verified Allergy, Unknown, 07/02/18) Allergies Reviewed: Yes Labs/Studies Labs Reviewed: Reviewed by anesthesiologist Result Diagram: 07/23/1851907/23/1820 Laboratory Tests 07/23/18 05:20 Blood Bank Test 07/23/18 05:20 Antibody Screen NEGATIVE Blood Type O POSITIVE test: Positive Studies: ECG (n/a), CXR (n/a) Pre-procedure Exam Last vitals Vital Signs Date Temp Pulse Resp B/P (MAP) Pulse Ox O2 O2 Flow FiO2 Time Delivery Rate 07/21/18 98.7 70 20 109/71 Room Air 23:30 (84) Airway: Adequate mouth opening Mallampati: Mallampati I Teeth: Normal Lung: Normal Heart: Normal ASA Physical Status ASA physical status: 2 Emergency: None Planned Anesthetic Neuraxial: Spinal Planned Pain Management Sub-arachniod narcotics Pre-operative Attestations Prior to commencing anesthesia and surgery, the patient was re-evaluated, there was verification of: *The patient's identity *The results of appropriate recent lab work and preoperative vital signs *The above evaluation not changing prior to induction *Anesthetic plan, risk benefits, alternative and complications discussed with patient/family; questions answered; patient/family understands, accepts and wishes to proceed. MARGARITA POLK MD Jul 23, 2018 16:25
[2018-07-23] MEDS ORDERED: CITRIC ACID/NA CITRATE 30 ML CUP PO ONE (17:00)
[2018-07-23] MEDS ORDERED: ONDANSETRON 4 MG INJ ONE (18:10)
[2018-07-23] MEDS ORDERED: METOCLOPRAMIDE 10 MG INJ ONE (18:10)
[2018-07-23] MEDS ORDERED: KETOROLAC 30 MG INJ ONE (18:10)
[2018-07-23] MEDS ORDERED: OXYTOCIN 30 UNITS/LR 500 ML IV ONE (18:10)
[2018-07-23] MEDS ORDERED: morphine SULFATE/PF (10 MG/10 ML) INJ ONE (18:10)
[2018-07-23] MEDS ORDERED: KETOROLAC 30 MG INJ IV STA (19:20)
--- NOTE | 2018-07-23 19:29 | OPR ---
Operative Report Planned Procedure Procedure date Jul 23, 2018 Procedure(s) Primary section Performed by see signature line Instrument Technician Helper: PHILOMENA CHANDRA MD Anesthesiologist: MARGARITA POLK MD Pre-procedure diagnosis 36 weeks gestation Severe cholestasis of with elevated liver enzymes Transverse lie and abnormal presentation [id number] Anesthesia Type: Nbycs5p spinal Post-Procedure Post-procedure diagnosis Status post primary section Findings Live Baby [], Apgars [] and [], weight [], position [], [] presentation []cord. Estimated Blood Loss: 600 - 700 mls Specimen(s) none Grafts/Implant(s) none Complication(s) none Pt Condition post procedure: stable Disposition: PACU Procedure Description Under satisfactory anaesthesia a Pfannenstiel incision was made two fingerbreadth above and parallel to the symphysis of pubis. Incision was extended laterally to the border of the Recti muscles on either sides. Incision was carried down with sharp and blunt dissection until fascia was reached. Anterior Recti muscle fascia was incised in mid portion and incision extended laterally to the border of skin incision. Fascia was mobilized from muscle superiorly and Recti muscles were from midline using sharp and blunt dissection. Peritoneum was visualized; Avoiding bowel and bladder it was incised . Incision was extended superiorly and inferiorly. Bladder blade was placed. Posterior p eritoneum covering the lower segment of the uterus and lower segment of the uterus were incised. Incision was extended laterally to the border of Round Lig. on either sides and after guiding vertex toward the incision baby was delivered via vertex presentation without any difficulty. Amniotic fluid appeared clear. Cord blood was obtained and cord had 3 vessels . Placenta was delivered spontaneously and appeared intact and complete. Intrauterine cavity was rubbed with a laparotomy sponge. Uterine incision was closed in 2 layers using running stitches of No1 Monocryl. Hemostasis appeared secure. Ovaries and Fallopian tubes were within normal limits. Announcing needle, lap sponge and instrument count to be correct abdomen was closed in layers as follows: Peritoneum and Recti muscles with running stitches of 2-0 Vicryl. Fascia with running stitch of No 1 PDS. Subcutaneous tissue with running stitches of 2-0 Monocryl and skin was closed using oliver. Patient tolerated the procedure well and was transferred to [facility] in good condition. DARREL DOMÍNGUEZ MD Jul 23, 2018 19:28
[2018-07-23] MEDS ORDERED: morphine (1 MG/ML) 10ML SYRINGE IV PRN ×3 (22:00)
[2018-07-23] MEDS ORDERED: KETOROLAC 30 MG INJ IV PRN (22:00)
[2018-07-23] MEDS ORDERED: ONDANSETRON 4 MG INJ IV PRN ×2 (22:00)
[2018-07-23] MEDS ORDERED: DIPHENHYDRAMINE 50 MG INJ IV PRN (22:00)
[2018-07-23] MEDS ORDERED: morphine 2 MG INJ IV PRN ×3 (22:00)
[2018-07-23] MEDS ORDERED: NALOXONE (0.4 MG/ML) INJ IV PRN (22:00)
[2018-07-23] MEDS ORDERED: LACTATED RINGER'S 1,000 ML IV SCH (22:17)
[2018-07-23 22:20] VITALS: BP 116/72; PULSE 72; RESP 18
[2018-07-23] MEDS ORDERED: LANOLIN HPA 1 PKT TOP PRN (22:30)
[2018-07-23] MEDS ORDERED: NA PHOSPHATE/BIPHOS 133 ML ENEMA PR PRN (22:30)
[2018-07-23] MEDS ORDERED: HYDROCODONE/APAP (5/325) TAB PO PRN (22:30)
[2018-07-24] MEDS: CEFAZOLIN 2 GM/50 ML (PMX) 50 ML IVPB SCH ×3 (00:13→16:23)
[2018-07-24] MEDS: COLESEVELAM 625 MG TAB PO SCH ×5 (00:26→23:38)
[2018-07-24] MEDS: CLINDAMYCIN 300 MG CAP PO SCH ×5 (00:27→23:38)
[2018-07-24 00:30] VITALS: BP 117/71; PULSE 67; RESP 18
[2018-07-24 03:50] VITALS: BP 111/70; PULSE 70; RESP 18
--- NOTE | 2018-07-24 06:51 | PAC ---
Date/Time of Note Date/Time of Note DATE: 07/24/18 TIME: 06:51 Post-Anesthesia Notes Post-Anesthesia Note Last documented vital signs Vital Signs Date Temp Pulse Resp B/P (MAP) Pulse Ox O2 O2 Flow FiO2 Time Delivery Rate 07/24/18 98.2 70 18 111/70 96 Room Air 03:50 (84) Activity: WNL Respiratory function: WNL Cardiovascular function: WNL Mental status: Baseline Pain reasonably controlled: Yes Hydration appropriate: Yes Nausea/Vomiting absent: No MARGARITA POLK MD Jul 24, 2018 06:51
--- NOTE | 2018-07-24 06:52 | OPPN ---
Date/Time of Note Date/Time of Note DATE: 07/24/18 TIME: 06:52 Anesthesia Follow up Anesthesia Follow up Last documented vital signs Vital Signs Date Temp Pulse Resp B/P (MAP) Pulse Ox O2 O2 Flow FiO2 Time Delivery Rate 07/24/18 98.2 70 18 111/70 96 Room Air 03:50 (84) Respiratory function: WNL Cardiovascular function: WNL Comments A 33 year female s/p spinal duramorph for post op apin POD #1 is fine. No pain, headache, itching, N/V. neural deficit. MARGARITA POLK MD Jul 24, 2018 06:52
[2018-07-24 08:30] VITALS: BP 96/61; PULSE 67; RESP 18
[2018-07-24] MEDS: SENNA/DOCUSATE NA (8.6MG/50MG) TAB PO SCH ×2 (08:55→21:05)
[2018-07-24] MEDS: URSODIOL 300 MG CAP PO SCH ×3 (08:56→21:09)
[2018-07-24] MEDS ORDERED: BISACODYL 10 MG SUPP PR ONE (10:30)
[2018-07-24 12:15] VITALS: BP 99/66; PULSE 66; RESP 18
[2018-07-24 16:20] VITALS: BP_SYST 132; BP_SYST 99; BP_DIAS 38; BP_DIAS 62; PULSE 38; PULSE 68; RESP 18
--- NOTE | 2018-07-24 18:36 | PN ---
Date/Time of Note Date/Time of Note DATE: 07/24/18 TIME: 18:34 Assessment/Plan VTE Prophylaxis VTE Prophylaxis Intervention: ambulation Lines/Catheters IV Catheter Type (from Nrsg): Peripheral IV Assessment/Plan Assessment/Plan S/P C/S POD # 1 advance diet and ambulate Subjective 24 Hr Interval Summary no bowel movement passing flatus Constitutional: no complaints, improved, ambulates, BM, flatus, urine output Pain Control: well controlled Exam/Review of Systems Vital Signs Vitals Vital Signs Date Temp Pulse Resp B/P (MAP) Pulse Ox O2 O2 Flow FiO2 Time Delivery Rate 07/24/18 Room Air 17:57 07/24/18 98.2 68 18 99/62 (74) 16:20 07/24/18 98 08:30 Intake and Output 07/23/18 07/23/18 07/24/18 1515:00 23:00 07:00 IntakeIntake Total 2000 ml OutputOutput Total 700 ml 900 ml BalanceBalance 1300 ml -900 ml Exam Free Text/Dictation abdomen: sft; BS present and not distended incision is covered Constitutional: alert, oriented, well developed Psych: no complaints, nl mood/affect Head: normocephalic, atraumatic Eyes: nl conjunctiva, EOMI, nl lids, nl sclera ENMT: nl external ears & nose, nl lips & teeth, nl nasal mucosa & septum, mucosa pink and moist Neck: supple, non-tender Respiratory: clear to auscultation, normal air movement Cardiovascular: regular rate and rhythm, nl pulses Gastrointestinal: soft, nl liver, spleen, non-tender Musculoskeletal: nl extremities to inspection, nl gait and stance Extremities: normal pulses Neurological: TAP PULLER II-XII intact, nl mental status, nl speech, nl strength Skin: nl turgor, rash or lesions Lymph: nl lymph nodes Results Result Diagram: 07/24/18 0733 07/23/18 0520 DARREL DOMÍNGUEZ MD Jul 24, 2018 18:36
[2018-07-24 19:40] VITALS: BP 113/75; PULSE 76; RESP 18
[2018-07-24] MEDS: IBUPROFEN 800 MG TAB PO SCH (21:09)
--- NOTE | 2018-07-24 23:13 | QN ---
Documentation Comment passing flatus vss afebrile abdomen soft wound dry lochia min calf neg for tenderenss A s/p primary c/s stable P as ordered PHILOMENA CHANDRA MD Jul 24, 2018 23:13
[2018-07-24] MEDS: OXYCODONE/ACETAMINOPHEN (5/325) TAB PO PRN (23:39)
[2018-07-25 03:42] VITALS: BP 104/64; PULSE 72; RESP 18
[2018-07-25] MEDS: CLINDAMYCIN 300 MG CAP PO SCH ×4 (05:45→23:59)
[2018-07-25] MEDS: IBUPROFEN 800 MG TAB PO SCH ×3 (05:46→21:46)
[2018-07-25] MEDS: COLESEVELAM 625 MG TAB PO SCH ×3 (05:46→17:28)
[2018-07-25 07:30] VITALS: BP 98/61; PULSE 69; RESP 18
[2018-07-25] MEDS: SENNA/DOCUSATE NA (8.6MG/50MG) TAB PO SCH ×2 (09:13→21:21)
[2018-07-25] MEDS: FERROUS GLUCONATE (EC) 325 MG TAB PO SCH ×2 (09:13→21:21)
[2018-07-25] MEDS: URSODIOL 300 MG CAP PO SCH ×3 (09:13→21:20)
[2018-07-25] MEDS: OXYCODONE/ACETAMINOPHEN (5/325) TAB PO PRN (11:20)
--- NOTE | 2018-07-25 15:23 | DS ---
Date/Time of Note Date/Time of Note Home today or next day DATE: 07/25/18 TIME: 15:21 Obstetrical Discharge Record Final Diagnosis Final Diagnosis: delivered Other Final Diagnosis Cholestasis of Breech presentation Primary Section Section: Primary Primary Indication Breech Complications Other (Severe cholestasis of ) Condition on Discharge Physical Assessment Voiding: Yes Bowel Movement: Yes Breast: Soft, non-tender, Filling Fundus: Firm Abdomen and Incision: Abdomen is soft with present bowel sounds Incision is healing well and appears without induration and or erythema Calf Tenderness: No Patient Condition: Good DARREL DOMÍNGUEZ MD Jul 25, 2018 15:23
--- NOTE | 2018-07-25 15:25 | DS ---
Date/Time of Note Date/Time of Note DATE: 07/25/18 TIME: 15:23 Discharge Summary Admission/Discharge Info Admit Date/Time Jul 21, 2018 at 19:35 Discharge Date/Time July 25 or 2018 Discharge Diagnosis Status post delivery Patient Condition: Good Consults Perinatology Procedures Primary section Hx of Present Illness 33-year-old female underwent primary section at 36 weeks for severe cholestasis of and breech presentation Hospital Course Hospital course remained uncomplicated Patient tolerated diet well and was ambulating without complications Discharge home on his second or third hospitalization day with good prognosis a nd condition Home Meds Active Scripts Cetirizine Hcl* (Cetirizine Hcl*) 5 Mg Tablet, 5 MG PO DAILY for dustin rgies/cough, #30 TAB Prov:RONALDO OAKES NP 07/08/18 Fluticasone Propionate* (Fluticasone Propionate* Nasal) 50 Mcg/[place] - 16 Gm [place].susp, 1 SPRAY NASAL BID for nasal congestion, #1 BOTTLE TO EACH NOSTRIL Prov:RONALDO OAKES NP 07/08/18 Reported Medications Ursodiol* (Actigall*) 300 Mg Cap, 300 MG PO TID, #90 CAP 07/15/18 Ferrous Sulfate (Iron) 325 Mg Capsule.er, 325 MG PO DAILY, CAP 12/02/16 Multivit/Min/Fol Ac/Iron/Pren* ( S*) 1 Tab Tab, 1 TAB PO DAILY, TAB 12/02/16 Follow-up Plan 2- 3 days in clinic for staple removal Primary Care Provider Not On Staff Doctor Time spent on discharge: > 30 minutes DARREL DOMÍNGUZE MD Jul 25, 2018 15:25
--- NOTE | 2018-07-25 15:26 | PD.PPDC ---
TELEGRAPH INSPECTOR Discharge Instruction Provider Information Physician Information 33-year-old female underwent her primary section for breech presentation cholestasis of Diagnosis [id number] Final Diagnosis: [id number] Status post primary section Condition Vnpak8Yh Patient Condition: Kkyel3g Good Diet Zooyo3Ip Diet: Depat5s Resume Regular Diet Activity/Restrictions Amkto1Ou Activity: Fkfkt8v May Shower Bvptz9Ea Restrictions: Pdlpx3v No Exercising No Lifting Nothing in the Vagina Nrsae0Nj Return to Work or School: Qwkyh2a Sep 27, 2018 Wound/Drain Care Instructions Ehmgp0Yn Wound/Drain Care Instructions: Jchyb7m Keep clean and dry Follow-up Follow-up with Physician: 2, 3, Day/Days (In clinic for staple removal) Return to clinic for Fwjft6Ub VICE PRESIDENT PLANNING Instructions: Ntufp9v Fever greater than 101 Chills Ezkoa1Tc OB Instructions: Dfrzn8d Breast Tenderness Depression Comment: Pelvic rest no hard activity for 2 months Dsyoj8Zh Surgical Instructions: Btzbu1v Incisional Drainage Incisional Redness DARREL DOMÍNGUEZ MD Jul 25, 2018 15:26
[2018-07-25] MEDS ORDERED: URSO300C21 PO (15:28)
[2018-07-25] MEDS ORDERED: IBUP800T48 PO (15:29)
[2018-07-25 15:30] VITALS: BP 106/73; PULSE 72; RESP 18
[2018-07-25] MEDS ORDERED: ACET325T33 PO ×2 (15:30→15:31)
[2018-07-25] MEDS ORDERED: ACETAMINOPHEN 325 MG TAB PO PRN (15:30)
[2018-07-25 19:55] VITALS: BP 103/68; PULSE 83; RESP 18
[2018-07-26 04:20] VITALS: BP 96/60; PULSE 63; RESP 18
[2018-07-26] MEDS: COLESEVELAM 625 MG TAB PO SCH ×4 (05:44→17:39)
[2018-07-26] MEDS: IBUPROFEN 800 MG TAB PO SCH ×2 (05:44→15:31)
[2018-07-26] MEDS: CLINDAMYCIN 300 MG CAP PO SCH ×3 (05:44→17:39)
[2018-07-26 07:51] VITALS: BP 98/53; PULSE 78; RESP 18
[2018-07-26] MEDS: URSODIOL 300 MG CAP PO SCH (08:58)
[2018-07-26] MEDS: FERROUS GLUCONATE (EC) 325 MG TAB PO SCH (08:58)
[2018-07-26] MEDS: SENNA/DOCUSATE NA (8.6MG/50MG) TAB PO SCH (08:58)
[2018-07-26] MEDS ORDERED: MEASLES,MUMPS,RUBELLA VACCINE INJ SC* ONE (09:00)
[2018-07-26] MEDS ORDERED: DIPHTH/TET/ACEL PERTUSS (ADULT) 0.5 ML VIAL IM* ONE (09:00)
[2018-07-26 16:00] VITALS: BP 119/67; PULSE 76; RESP 18
[2018-07-26] MEDS: OXYCODONE/ACETAMINOPHEN (5/325) TAB PO PRN (17:42)
--- NOTE | 2018-07-27 19:11 | DELSUM ---
Delivery Summary A-C Datetime Report Generated by CPN: 07/27/2018 19:11 DELIVERY PERSONNEL Wheelchair Van Driver: Ty, Brittney MATERNAL INFORMATION Delivery Anesthesia: Spinal Medications in Delivery: See anesthesia records Delivery QBL (ml): 500 Placenta Cultured: No Maternal Complications: Other Other Maternal Complications: Cholestasis Breech LABOR SUMMARY EDC: 08/20/2018 00:00 No. Babies in Womb: 1 Attempted: No Labor Anesthesia: None LABOR INFORMATION Reason for Induction: Not Applicable Reason for Induction- Other: Cholestasis/Breech Oxytocin: N/A Group B Beta Strep: Not Done Antibiotics # of Doses: Ampicillin x3, Ancef x1 Antibiotics Time of Last Dose: 07/23/2018 18:17 Steroids Given: Full Course Reason Steroids Not Administered: Not Applicable MEMBRANES Membranes Rupture Method: Artificial Rupture of Membranes: 07/23/2018 18:32 Length of Rupture (hr): 0.02 Amniotic Fluid Color: Clear Amniotic Fluid Amount: Moderate Amniotic Fluid Odor: None STAGES OF LABOR Stage 3 hr: 0 Stage 3 min: 1 CSECTION DELIVERY Primary Indication: Breech Presentation Other Primary Indication: Cholestasis Secondary Indication: N/A CSection Urgency: Non Elective CSection Incidence: Primary Labor: N/A Elective: N/A CSection Incision: Lower Uterine Transverse BABY A INFORMATION Delivery Date/Time: 07/23/2018 18:33 Method of Delivery: Born in Route : No : N/A Forceps: N/A Vacuum Extraction: N/A Shoulder Dystocia : N/A SHOULDER DYSTOCIA BABY A Delivery Date/Time: 07/23/2018 18:33 PRESENTATION/POSITION BABY A Presentation: Cephalic Cephalic Presentation: Vertex Vertex Position: Right Occipital Posterior Breech Presentation: N/A PLACENTA INFORMATION BABY A Placenta Delivery Time : 07/23/2018 18:34 Placenta Method of Delivery: Manual Removal Placenta Status: Delivered SCORES BABY A Heart Rate 1 min: >100 bpm Resp Effort 1 min: Good Cry Reflex Irritability 1 min: Cough/Sneeze/Pulls Away Muscle Tone 1 min: Active Motion Color 1 min: Blue/Pale Resuscitation Effort 1 min: Tactile Stimulation SCORE 1 MIN: 8 Heart Rate 5 min: >100 bpm Resp Effort 5 min: Good Cry Reflex Irritability 5 min: Cough/Sneeze/Pulls Away Muscle Tone 5 min: Active Motion Color 5 min: Body [place], Extremit Blue Resuscitation Effort 5 min: Tactile Stimulation SCORE 5 MIN: 9 INFORMATION BABY A Gestational Age at Delivery: 36.0 Gestational Status: Late - 34- 36.6 Weeks Outcome : Liveborn Infant Condition : Stable Infant Sex: Female IDENTIFICATION/MEDS BABY A ID Band Number: [id number] ID Band Location: Right Leg; Left Arm Sensor Applied: Yes Sensor Number: [id number] Sensor Location : Cord Clamp Vitamin K Given : Not Given Erythromycin Given: Not Given WEIGHT/LENGTH BABY A Infant Birthweight (gm): 2670 Weight (lb): 5 Infant Weight (oz): 14 Infant Length (in): 17.50 Infant Length (cm): 44.45 CORD INFORMATION BABY A No. Cord Vessels: 3 Nuchal Cord : N/A Cord Blood Taken: Yes Infant Suction: Mouth; Nose ASSESSMENT BABY A Complications: None Physical Findings at Delivery: Within Normal Limits Infant Respirations: Appears Normal Fishing Boat Captain/ALS Called : No Infant Care By: Nata CASH/Reggie RT Transferred To: Remains with Mother
== END 2018-07-26 18:30 | disposition home or self-care (01) | DRG 786 ==
LOC: OBT 19:31 → L-D 19:32 → OBT 19:35 → PP1 22:52 → L-D 07-23 05:10 → PP1 07-23 22:07
PROVIDERS: ADMIT Obstetrics & Gynecology; ATTEND Obstetrics & Gynecology
PROC: 10D00Z1 Extraction of Products of Conception, Low, Open Approach (ICD-10-PCS; principal; 2018-07-25)
DX: O26.62 Liver and biliary tract disorders in childbirth (principal); K83.1 Obstruction of bile duct; O60.13X0 Preterm labor second trimester with preterm delivery third trimester, not applicable or unspecified; O32.2XX0 Maternal care for transverse and oblique lie, not applicable or unspecified; Z3A.36 36 weeks gestation of pregnancy; Z37.0 Single live birth
CPT/HCPCS: 71045; 76815; 80053; 85025; 85610; 85730; 86592; 86850; 86900; 86901; 87340; 99464; J0290; J0456; J0690; J0702; J1200; J1885; J2274; J2405; J2590; J2765; J7120